=== PATIENT | male | born 1990 | race African-American/Black ===

== ENCOUNTER 2021-10-05 08:04 | Emergency (ER) | payer SELFPAY ==
[~2021-10-05] VITALS: Ht 182.9 cm; Wt 100.0 kg
[2021-10-05 08:33] VITALS: BP 142/72
--- NOTE | 2021-10-05 08:42 | RAD ---
Exam Date: 10/05/2021 8:30 AM XR HAND_RIGHT 3 VIEWS Indication: Reason: injury / Spl. Instructions: / History: . FINDINGS/ IMPRESSION: No acute fracture or dislocation. Alignment and joint spaces are maintained. The soft tissues are w ithin normal limits. Electronically signed by: Addi Culp MD (10/05/2021 8:39 AM) [id number]
[2021-10-05] MEDS ORDERED: HYDROcodone/APAP 5/325MG 1 TAB TABLET PO ONE (08:45)
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
[2021-10-06] MEDS ORDERED: CEPH500T PO (10:58)
== END 2021-10-05 09:50 | disposition home or self-care (01) ==
LOC: ER 08:04
DX: S61.411A Laceration without foreign body of right hand, initial encounter (principal); Y08.89XA Assault by other specified means, initial encounter; Y93.89 Activity, other specified; Y92.89 Other specified places as the place of occurrence of the external cause; Y99.8 Other external cause status
CPT/HCPCS: 73130; 99283

== ENCOUNTER 2021-10-06 10:26 | Emergency (ER) | payer SELFPAY ==
[~2021-10-06] VITALS: Ht 182.9 cm; Wt 91.8 kg
[2021-10-06 10:44] VITALS: BP 162/105
[2021-10-06] MEDS ORDERED: CEPH500T PO (10:58)
--- NOTE | 2021-10-06 10:59 | PHYS DOC ---
Past History Past Surgical History: Other Additional Past Surgical Histo: LEFT ANKLE Alcohol Use: Occasionally General Adult EDM: Chief Complaint: UPPER EXTREMITY INJURY HPI: HPI: 31-year-old male returns the emergency room with his right posterior hand laceration. He would not let me suture the laceration yesterday. He is now having 2nd thoughts and thinks maybe he should get sutures. He denies fever or chills. He has had some serous drainage from the wound. He has no new injuries or complaints at this time. Review of Systems: Review of Systems: Constitutional: Denies fever or chills Eyes: Denies change in visual acuity HENT: Denies nasal congestion or sore throat Respiratory: Denies cough or shortness of breath Cardiovascular: Denies chest pain or edema GI: Denies abdominal pain, nausea, vomiting, bloody stools or diarrhea : Denies dysuria Musculoskeletal: Denies back pain or joint pain Integument: Right hand skin laceration, old Neurologic: Denies headache, focal weakness or sensory changes Endocrine: Denies polyuria or polydipsia Lymphatic: Denies swollen glands Psychiatric: Denies depression or anxiety Allergies: Allergies: Allergies Coded Allergies Type Severity Reaction Last Updated Verified No Known Drug Allergies 10/06/21 No Physical Exam: PE: Constitutional: Well developed, well nourished, no acute distress, non-toxic appearance. [] HENT: Normocephalic, atraumatic, bilateral external ears normal, oropharynx moist, no oral exudates, nose normal. [] Eyes: PERRLA, EOMI, conjunctiva normal, no discharge. [] Neck: Normal range of motion, no tenderness, supple, no stridor. [] Cardiovascular:Heart rate regular rhythm, no murmur [] Lungs & Thorax: Bilateral breath sounds clear to auscultation [] Abdomen: Bowel sounds normal, soft, no tenderness, no masses, no pulsatile ma sses. [] Skin: Serous drainage from 3 cm linear laceration of the right posterior hand, reasonable skin approximation, no bleeding. No obvious infection. [] Back: No tenderness, no CVA tenderness. [] Extremities: No tenderness, no cyanosis, no clubbing, ROM intact, no edema. [] Neurologic: Alert and oriented X 3, normal motor function, normal sensory function, no focal deficits noted. [] Psychologic: Affect normal, judgement normal, mood normal. [] Current Patient Data: Vital Signs: Vital Signs Date Time Temp Pulse Resp B/P (MAP) Pulse Ox O2 Delivery O2 Flow Rate FiO2 10/06/21 10:44 98.4 99 20 162/105 (124) 96 Room Air EKG: EKG: [] Radiology/Procedures: Radiology/Procedures: [] Heart Score: C/O Chest Pain: N/A Risk Factors: Risk Factors: DM, Current or recent (<one month) smoker, HTN, HLP, family history of CAD, obesity. Risk Scores: Score 0 - 3: 2.5% MACE over next 6 weeks - Discharge Home Score 4 - 6: 20.3% MACE over next 6 weeks - Admit for Clinical Observation Score 7 - 10: 72.7% MACE over next 6 weeks - Early Invasive Strategies Course & Med Decision Making: Course & Med Decision Making Pertinent Labs and Imaging studies reviewed. (See chart for details) I explained to the patient that we are unable to suture the wound at this time since it is nearly 24 h since the injury. It actually looks pretty good. The skin is reasonably approximated. It is mildly swollen and having some clear drainage but no obvious sign of infection. I will treat the patient with antibiotics prophylactically. His Steri-Strips have come off likely due to the drainage. We will place a nonadherent pad and wrap around it to protect it and keep it clean. He is stable for discharge at this time. [] Izzy Disclaimer: Izzy Disclaimer: This electronic medical record was generated, in whole or in part, using a voice recognition dictation system. Departure Departure: Impression: Primary Impression: Laceration of right hand Disposition: HOME / SELF CARE / HOMELESS Condition: STABLE Referrals: PCP,NO (PCP) Patient Instructions: Laceration, Old, Not Sutured Scripts Cephalexin (CEPHALEXIN) 500 Mg Tablet 1 TAB PO TID for laceration for 7 Days, #21 TAB Prov: MARY PARDO DO 10/06/21 MARY PARDO DO Oct 06, 2021 10:59
== END 2021-10-06 11:05 | disposition home or self-care (01) ==
LOC: ER 10:26
DX: S61.411D Laceration without foreign body of right hand, subsequent encounter (principal); Y08.89XD Assault by other specified means, subsequent encounter
CPT/HCPCS: 99283

== ENCOUNTER 2021-10-25 01:51 | Emergency (ER) | payer SELFPAY ==
[~2021-10-25] VITALS: Ht 182.9 cm; Wt 93.1 kg
[~2021-10-25 01:51] MED LIST: CEPH500T PO
--- NOTE | 2021-10-25 02:53 | PHYS DOC ---
Past History Past Surgical History: Other Additional Past Surgical Histo: LEFT ANKLE Alcohol Use: Occasionally General Adult EDM: Chief Complaint: MECHANICAL FALL HPI: HPI: ". Was showing my son my dance moves in the garage on Friday.,. and slipped and fell.. I tried to catch myself.. and jamed this wrist..." Patient is a 31 year old male who presents with above hx and fall on Friday. Pt. had a FOOSH injury to Lt. wrist. Pt wrist and hand has remained tender and swollen. Distal capillary refill is equal to right hand. Patient is right-hand dominant. Movement hand exacerbates pain in wrist. No other injury during the fall. Patient currently visiting his son. Review of Systems: Review of Systems: Constitutional: Denies fever or chills Eyes: Denies change in visual acuity HENT: Denies nasal congestion or sore throat Respiratory: Denies cough or shortness of breath Cardiovascular: Denies chest pain or edema GI: Denies abdominal pain, nausea, vomiting, bloody stools or diarrhea : Denies dysuria Musculoskeletal: Complaints of Lt. wrist and hand pain. Integument: Denies rash Neurologic: Denies headache, focal weakness or sensory changes Endocrine: Denies polyuria or polydipsia Lymphatic: Denies swollen glands Psychiatric: Denies depression or anxiety Family History: Family History: Noncontributory to presentation Current Medications: Current Meds: See nursing for home meds Allergies: Allergies: Allergies Coded Allergies Type Severity Reaction Last Updated Verified No Known Drug Allergies 10/06/21 No Physical Exam: PE: Constitutional: Moderate acute distress, non-toxic appearance. [] HENT: Normocephalic, atraumatic, bilateral external ears normal, oropharynx moist, no oral exudates, nose normal. [] Eyes: PERRLA, EOMI, conjunctiva normal, no discharge. [] Neck: Normal range of motion, no tenderness, supple, no stridor. [] Cardiovascular: Tachycardia heart rate regular rhythm, no murmur [] Lungs & Thorax: Bilateral breath sounds equal with scattered wheezes auscultation [] Abdomen: Bowel sounds normal, soft, no tenderness, no masses, no pulsatile masses. [] Skin: Warm, dry, no erythema, no rash. [] Back: No tenderness, no CVA tenderness. [] Extremities: Left wrist tenderness, no cyanosis, no clubbing, ROM intact, right wrist however left wrist limited due to pain, left wrist edema. [] Neurologic: Alert and oriented X 3, normal motor function, normal sensory function, no focal deficits noted. [] Psychologic: Affect anxious, judgement normal, mood normal. [] Current Patient Data: Vital Signs: Vital Signs Date Time Temp Pulse Resp B/P (MAP) Pulse Ox O2 Delivery O2 Flow Rate FiO2 10/25/21 02:21 99.5 96 16 150/92 (111) 100 Room Air EKG: EKG: [] Radiology/Procedures: Radiology/Procedures: S][address] [address] IMAGING REPORT Signed PATIENT: ISH MIX ACCOUNT: [id number] : 1990 LOCATION: ER AGE: 31 SEX: M EXAM STATUS: REG ER ORD. PHYSICIAN: BRYAN HERBERT MD REASON: FOOSH injury, fell and landed on left wrist and hand, pain PROCEDURE: WRIST 3V LEFT Exam: XR LT WRIST 3VIEWS, XR HAND_LEFT 3 VIEWS History: Fall. Left wrist and hand pain. Comparison: None. Findings: Osseous mineralization is normal. No acute fracture or dislocaton. No significant degenerative changes. Soft tissues are unremarkable. Impression: 1. No acute osseous abnormality in the left wrist and hand. Recommend repeat radiographs in 1-2 weeks to exclude occult fracture if there is pain at the scaphoid. Electronically signed by: Jorge Luis Purcell MD (10/25/2021 3:17 AM) [facility] DICTATED AND SIGNED BY: JORGE LUIS PURCELL MD DATE: 10/25/21315 CC: BRYAN HERBERT MD; PCP,NO ~ Heart Score: C/O Chest Pain: N/A Risk Factors: Risk Factors: DM, Current or recent (<one month) smoker, HTN, HLP, family history of CAD, obesity. Risk Scores: Score 0 - 3: 2.5% MACE over next 6 weeks - Discharge Home Score 4 - 6: 20.3% MACE over next 6 weeks - Admit for Clinical Observation Score 7 - 10: 72.7% MACE over next 6 weeks - Early Invasive Strategies Course & Med Decision Making: Course & Med Decision Making Pertinent Labs and Imaging studies reviewed. (See chart for details) Wear thumb spica splint. Elevate. Ice packs as needed. Tylenol and ibuprofen for pain. 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 Follow-up primary care. Return if any concerns. Impression: 1.Fall and FOOSH type injury mechanism to Lt. Wrist and Hand 2.Strain / Sprain Lt Wrist and Hand [] Dragon Disclaimer: Dragon Disclaimer: This electronic medical record was generated, in whole or in part, using a voice recognition dictation system. Departure Departure: Referrals: PCP,NO (PCP) Izzy Disclaimer This chart was dictated in whole or in part using Voice Recognition software in a busy, high-work load, and often noisy Emergency Department environment. It may contain unintended and wholly unrecognized errors or omissions. BRYAN HERBERT MD Oct 25, 2021 02:53
[2021-10-25] MEDS ORDERED: KETOROLAC 60 MG/2 ML VIAL. IM ONE (03:00)
--- NOTE | 2021-10-25 03:20 | RAD ---
Exam: XR LT WRIST 3VIEWS, XR HAND_LEFT 3 VIEWS History: Fall. Left wrist and hand pain. Comparison: None. Findings: Osseous mineralization is normal. No acute fracture or dislocaton. No significant degenerative change s. Soft tissues are unremarkable. Impression: 1. No acute osseous abnormality in the left wrist and hand. Recommend repeat radiographs in 1-2 week s to exclude occult fracture if there is pain at the scaphoid. Electronically signed by: Jorge Luis Purcell MD (10/25/2021 3:17 AM) [facility]
--- NOTE | 2021-10-25 03:20 | RAD ---
Exam: XR LT WRIST 3VIEWS, XR HAND_LEFT 3 VIEWS History: Fall. Left wrist and hand pain. Comparison: None. Findings: Osseous mineralization is normal. No acute fracture or dislocaton. No significant degenerative change s. Soft tissues are unremarkable. Impression: 1. No acute osseous abnormality in the left wrist and hand. Recommend repeat radiographs in 1-2 week s to exclude occult fracture if there is pain at the scaphoid. Electronically signed by: Jorge Luis Purcell MD (10/25/2021 3:17 AM) [facility]
[2021-10-25 03:55] VITALS: BP 140/86
== END 2021-10-25 04:00 | disposition home or self-care (01) ==
LOC: ER 01:51
DX: S63.502A Unspecified sprain of left wrist, initial encounter (principal); W01.0XXA Fall on same level from slipping, tripping and stumbling without subsequent striking against object, initial encounter; Y93.89 Activity, other specified; Y92.89 Other specified places as the place of occurrence of the external cause; Y99.8 Other external cause status
CPT/HCPCS: 29125; 73110; 73130; 96372; 99284; J1885

== ENCOUNTER 2021-12-19 20:54 | Emergency (ER) | payer SELFPAY ==
[~2021-12-19] VITALS: Ht 182.9 cm; Wt 99.5 kg
--- NOTE | 2021-12-19 21:02 | PHYS DOC ---
Past History Past Surgical History: Other Additional Past Surgical Histo: LEFT ANKLE Alcohol Use: Occasionally General Adult HPI: HPI: ".. I ve had this cough.. and it does not go away...". " Now I got this chest pain.. from all the coughing..." Patient is a 31 year old male who presents with above hx and complaints of non- productive cough this past week.. Pt. did receive COVID vaccination Moderna x2. Did not get flu vaccination. Patient denies any trauma. Patient denies any specific ill contacts. Patient has history of some travel. Patient normally healthy. No history of immunosuppression. Review of Systems: Review of Systems: Constitutional: Denies fever or chills Eyes: Denies change in visual acuity HENT: Denies nasal congestion or sore throat Respiratory: Complains of cough Cardiovascular: Complains of chest pain from all the coughing GI: Denies abdominal pain, nausea, vomiting, bloody stools or diarrhea : Denies dysuria Musculoskeletal: Denies back pain or joint pain Integument: Denies rash Neurologic: Denies headache, focal weakness or sensory changes Endocrine: Denies polyuria or polydipsia Lymphatic: Denies swollen glands Psychiatric: Denies depression or anxiety Family History: Family History: Noncontributory to presentation Current Medications: Current Meds: See nursing for home meds Allergies: Allergies: Allergies Coded Allergies Type Severity Reaction Last Updated Verified No Known Drug Allergies 10/06/21 No Physical Exam: PE: Constitutional: Mild distress, non-toxic appearance. [] HENT: Normocephalic, atraumatic, bilateral external ears normal, oropharynx moist, no oral exudates, nose normal. [] Eyes: PERRLA, EOMI, conjunctiva normal, no discharge. [] Neck: Normal range of motion, no tenderness, supple, no stridor. [] Cardiovascular:Heart rate regular rhythm, no murmur [] Lungs & Thorax: Bilateral breath sounds equal with few scattered wheezes auscultation []. Chest pain somewhat sternal and reproducible cough and deep breaths Abdomen: Bowel sounds normal, soft, no tenderness, no masses, no pulsatile masses. [] Skin: Warm, dry, no erythema, no rash. [] Back: No tenderness, no CVA tenderness. [] Extremities: No tenderness, no cyanosis, no clubbing, ROM intact, no edema. [] No cording in legs. Neurologic: Alert and oriented X 3, normal motor function, normal sensory functi on, no focal deficits noted. [] Psychologic: Affect normal, judgement normal, mood normal. [] EKG: EKG: My interpretation EKG shows a sinus rhythm at 88 bpm. There is some nonspecific T wave changes inferior leads. No findings acute STEMI with contralateral changes. Does have some bimodal P waves. Time of EKG is 2137 Radiology/Procedures: Radiology/Procedures: [][facility] [address] [place] [address] [id number] IMAGING REPORT Signed PATIENT: ISH MIX ACCOUNT: [id number] : 1990 LOCATION: ER AGE: 31 SEX: M EXAM STATUS: REG ER ORD. PHYSICIAN: BRYAN HERBERT MD REASON: Chest pain PROCEDURE: CHEST PA & LATERAL Exam: Chest 2 views INDICATION: Chest pain, pain TECHNIQUE: Frontal and lateral views the chest Comparisons: None FINDINGS: The cardiomediastinal silhouette and pulmonary vessels are within normal limits. The lung and pleural spaces are clear. IMPRESSION: No acute cardiopulmonary process. Electronically signed by: Pavel Blunt MD (12/19/2021 10:18 PM) [facility] DICTATED AND SIGNED BY: PAVEL BLUNT MD DATE: 12/19/212217 CC: BRYAN HERBERT MD; PCP,NO ~ Heart Score: C/O Chest Pain: Yes HEART Score for Chest Pain: HEART Score for Chest Pain Response (Comments) Value History Slighlty/Non-Suspicious 0 ECG Normal 0 Age < 45 0 Troponin < Normal Limit 0 Total 0 Risk Factors: Risk Factors: DM, Current or recent (<one month) smoker, HTN, HLP, family history of CAD, obesity. Risk Scores: Score 0 - 3: 2.5% MACE over next 6 weeks - Discharge Home Score 4 - 6: 20.3% MACE over next 6 weeks - Admit for Clinical Observation Score 7 - 10: 72.7% MACE over next 6 weeks - Early Invasive Strategies Course & Med Decision Making: Course & Med Decision Making Pertinent Labs and Imaging studies reviewed. (See chart for details) Patient use MDI 2 puffs 4 times a day. Take prednisone 50 mg a day for 5 days. Patient take Tylenol and ibuprofen for pain. Patient take Zithromax 250 mg a day. Follow-up primary care. Return if any concerns. 1. Chest wall pain 2. Bronchiectasis [] Dragon Disclaimer: Dragon Disclaimer: This electronic medical record was generated, in whole or in part, using a voice recognition dictation system. Departure Departure: Referrals: PCP,NO (PCP) Scripts Prednisone (PREDNISONE) 50 Mg Tablet 50 MG PO DAILY for reactive airway for 5 Days, #5 TAB Prov: BRYAN HERBERT MD 12/19/21 Azithromycin (ZITHROMAX) 250 Mg Tablet 250 MG PO DAILY for ANTI-BIOTIC for 5 Days, #5 TAB 0 Refills Prov: BRYAN HERBERT MD 12/19/21 Izzy Disclaimer This chart was dictated in whole or in part using Voice Recognition software in a busy, high-work load, and often noisy Emergency Department environment. It may contain unintended and wholly unrecognized errors or omissions. BRYAN HERBERT MD December 19, 2021 21:02
[2021-12-19 21:10] VITALS: BP 166/97
[2021-12-19] MEDS ORDERED: IV RINGERS SOLUTION,LACTATED 1,000 ML IV SCH (21:30)
[2021-12-19] MEDS ORDERED: ALBUTEROL SULFATE 8GM INHALER. INH ONE (21:30)
[2021-12-19 22:03] LABS: BASO % 0 % (0-3); EOS # 0.1 x10^3/uL (0.0-0.7); EOS % 1 % (0-3); HEMATOCRIT 45.2 % (39.0-53.0); LYMPH # 1.1 x10^3/uL (1.0-4.8); LYMPH % 20 % (24-48); MEAN CORPUSCULAR HEMOGLOBIN 29 pg (25-35); MEAN CORPUSCULAR HGB CONC 33 g/dL (31-37); MEAN CORPUSCULAR VOLUME 88 fL (79-100); MONO # 0.7 x10^3/uL (0.0-1.1); MONO % 13 % (0-9); NEUT # 3.6 x10^3uL (1.8-7.7); NEUT % 65 % (31-73); PLATELET COUNT 204 x10^3/uL (140-400); RED BLOOD COUNT 5.13 x10^6/uL (4.30-5.70); RED CELL DISTRIBUTION WIDTH 15.2 % (11.5-14.5); WHITE BLOOD COUNT 5.6 x10^3/uL (4.0-11.0)
[2021-12-19 22:13] LABS: CALCIUM 8.8 mg/dL (8.5-10.1); GFR 106.9
[2021-12-19 22:16] LABS: INFLUENZA A PATIENT NEGATIVE (NEGATIVE); INFLUENZA B PATIENT NEGATIVE (NEGATIVE)
--- NOTE | 2021-12-19 22:21 | RAD ---
Exam: Chest 2 views INDICATION: Chest pain, pain TECHNIQUE: Frontal and lateral views the chest Comparisons: None FINDINGS: The cardiomediastinal silhouette and pulmonary vessels are within normal limits. The lung and pleural spaces are clear. IMPRESSION: No acute cardiopulmonary process. Electronically signed by: Pavel Deshpande MD (12/19/2021 10:18 PM) [facility]
[2021-12-19 22:28] LABS: BACTERIA,URINE 0 /HPF (0-FEW); CLARITY,URINE CLEAR; COLOR,URINE YELLOW; GLUCOSE,URINE NEG (NEG); NITRITE,URINE NEG (NEG); RBC,URINE 0 /HPF (0-2); SQUAMOUS EPITHELIAL CELL,UR OCC /LPF; UROBILINOGEN,URINE 0.2 mg/dL (0.2 mg/dL); WBC,URINE OCC /HPF (0-4)
[2021-12-19 22:31] LABS: ALBUMIN 3.7 g/dL (3.4-5.0); DIRECT BILIRUBIN 0.1 mg/dL (0.0-0.2); MAGNESIUM 2.1 mg/dL (1.8-2.4); TOTAL BILIRUBIN 0.7 mg/dL (0.2-1.0); TOTAL PROTEIN 7.9 g/dL (6.4-8.2)
[2021-12-19 22:33] LABS: BARBITURATES NEG (NEG); BENZODIAZEPINES NEG (NEG); CANNABINOIDS NEG (NEG); COCAINE NEG (NEG); METHADONE NEG (NEG); OPIATES NEG (NEG); PHENCYCLIDINE NEG (NEG)
[2021-12-19 22:36] LABS: AMPHETAMINE/METHAMPHETAMINE NEG (NEG)
[2021-12-19] MEDS ORDERED: AZIT250T PO (22:36)
[2021-12-19] MEDS ORDERED: PRED50TA PO (22:37)
[2021-12-19] MEDS ORDERED: AZITHROMYCIN 250 MG TABLET. PO ONE (22:45)
[2021-12-19] MEDS ORDERED: predniSONE 10 MG TABLET. PO ONE (22:45)
== END 2021-12-19 22:49 | disposition home or self-care (01) ==
LOC: ER 20:54
DX: R07.89 Other chest pain (principal); J47.9 Bronchiectasis, uncomplicated; Z20.822 Contact with and (suspected) exposure to COVID-19
CPT/HCPCS: 36415; 71046; 80048; 80076; 80307; 81001; 82550; 83735; 83880; 85025; 85379; 85610; 85730; 87428; 93005; 94640; 96360; 99285; J7120; J7512; 94664